=== PATIENT | female | born 1985 | race African-American/Black ===

== ENCOUNTER 2018-06-21 23:15 | Emergency (ER) | payer OTHER ==
[2018-06-22] MEDS ORDERED: HYDROXYZINE HCL 10 MG TABLET PO ONE (00:14)
[2018-06-22 00:53] LABS: ABSOLUTE EOSINOPHILS # (AUTO) 0.2 10^3/uL (0.0-0.6); ABSOLUTE LYMPHOCYTES (AUTO) 2.5 10^3/uL (0.5-4.7); ABSOLUTE MONOCYTES (AUTO) 0.8 10^3/uL (0.1-1.4); ABSOLUTE NEUT (AUTO) 7.8 10^3/uL (1.7-8.2); BASOPHILS % (AUTO) 0.2 % (0-2); EOSINOPHILS % (AUTO) 1.5 % (0-6); HEMATOCRIT 36.1 % (36.0-47.0); LYMPHOCYTES % (AUTO) 22.5 % (13-45); MEAN CORPUSCULAR HEMOGLOBIN 27.6 pg (27.0-33.4); MEAN CORPUSCULAR HGB CONC 33.2 g/dL (32.0-36.0); MEAN CORPUSCULAR VOLUME 83 fl (80-97); MONOCYTES % (AUTO) 6.8 % (3-13); PLATELET COUNT 272 10^3/uL (150-450); RED BLOOD COUNT 4.33 10^6/uL (3.72-5.28); RED CELL DISTRIBUTION WIDTH 14.3 % (11.5-14.0); TOTAL CELLS COUNTED % (AUTO) 100 %; WHITE BLOOD COUNT 11.2 10^3/uL (4.0-10.5)
[2018-06-22 01:06] LABS: ALANINE AMINOTRANSFERASE 11 U/L (9-52); ALBUMIN 4.1 g/dL (3.5-5.0); ALKALINE PHOSPHATASE 55 U/L (38-126); ANION GAP 11 (5-19); ASPARTATE AMINO TRANSFERASE 16 U/L (14-36); BILIRUBIN,DIRECT 0.2 mg/dL (0.0-0.4); BILIRUBIN,TOTAL 0.2 mg/dL (0.2-1.3); BLOOD UREA NITROGEN 10 mg/dL (7-20); CALCIUM 9.7 mg/dL (8.4-10.2); CARBON DIOXIDE 27 mmol/L (22-30); CHLORIDE 103 mmol/L (98-107); GLUCOSE 114 mg/dL (75-110); POTASSIUM 4.1 mmol/L (3.6-5.0); TOTAL PROTEIN 7.3 g/dL (6.3-8.2)
[2018-06-22] MEDS ORDERED: ALPRAZOLAM 0.5 MG TABLET PO ONE (01:35)
--- NOTE | 2018-06-22 01:48 | ER Document Report ---
ED General - General Chief Complaint: Anxiety Stated Complaint: SHORTNESS OF BREATH Time Seen by Provider: 06/21/18 23:43 Mode of Arrival: Ambulatory Information source: Patient TRAVEL OUTSIDE OF THE [place] IN LAST 30 DAYS: No - HPI Patient complains to provider of: Anxiety Onset: Other - 32-year-old woman without medical problems the presents for evaluation of anxiety and a sensation of some shortness of breath which developed today while she was at home she noted that she felt like something was unwell brought all her family together because she wanted them to be together had smokes marijuana and then began to feel more short of breath. Because she was concerned she thereafter followed her mother to her house and asked her to come the emergency room. She is never had anything like this in the past nothing is made it better or worse. She did try to smoke marijuana to help with it. - Related Data Allergies/Adverse Reactions: No Known Allergies Allergy (Verified 06/22/18 00:43) Past Medical History - General Information source: Patient - Social History Smoking Status: Unknown if Ever Smoked Chew tobacco use (# tins/day): No Frequency of alcohol use: Rare Drug Abuse: Marijuana Family History: None Patient has suicidal ideation: No Patient has homicidal ideation: No Renal/ Medical History: Denies: Hx Peritoneal Dialysis Past Surgical History: Reports: Hx Orthopedic Surgery - FOOT Review of Systems - Review of Systems -: Yes All other systems reviewed and negative Physical Exam - Vital signs Vitals: Temp Pulse Resp BP Pulse Ox 98.3 F 108 H 18 130/91 H 100 06/21/18 23:23 06/21/18 23:23 06/21/18 23:23 06/21/18 23:23 06/21/18 23:23 - General General appearance: Appears well, Alert - HEENT Head: Normocephalic, Atraumatic Eyes: Normal Pupils: PERRL - Respiratory Respiratory status: No respiratory distress Chest status: Nontender Breath sounds: Normal Chest palpation: Normal - Cardiovascular Rhythm: Regular Heart sounds: Normal auscultation Murmur: No - Abdominal Inspection: Normal Distension: No distension Bowel sounds: Normal Tenderness: Nontender Organomegaly: No organomegaly - Back Back: Normal, Nontender - Extremities General upper extremity: Normal inspection, Nontender, Normal color, Normal ROM , Normal temperature General lower extremity: Normal inspection, Nontender, Normal color, Normal ROM , Normal temperature, Normal weight bearing. No: Gail's sign - Neurological Neuro grossly intact: Yes Cognition: Normal Orientation: AAOx4 Harbert Coma Scale Eye Opening: Spontaneous Linda Coma Scale Verbal: Oriented Linda Coma Scale Motor: Obeys Commands Linda Coma Scale Total: 15 Speech: Normal Motor strength normal: LUE, RUE, LLE, RLE Sensory: Normal - Psychological Associated symptoms: Normal affect, Normal mood Course - Re-evaluation Re-evalutation: 32-year-old female presents for anxiety. She does not have any known medical problems. She does have modest tachycardia though she has been smoking marijuana and I do think there is an element of paranoia here. We will plan for her to undergo d-dimer, CBC CMP troponin reassessment. Patient given hydroxyzine to try and treat her symptoms of anxiety. She is clinically intoxicated with marijuana at this time. D-dimer is negative, CBC CMP are reassuring troponin is negative. Patient with no active chest pain at this time does appear to still be under the influence of marijuana at this time. We will plan for administration of benzodiazepine. Did speak to the patient and her mother about further investigation management including potential mental health evaluation in the morning which they declined at this time. She denies any suicidality homicidality or hallucinations. We that she is likely safe for outpatient management. We will plan for discharge and return precautions. - Vital Signs Vital signs: Temp Pulse Resp BP Pulse Ox 98.3 F 108 H 18 130/91 H 100 06/21/18 23:23 06/21/18 23:23 06/21/18 23:23 06/21/18 23:23 06/21/18 23:23 - Laboratory Result Diagrams: 06/22/18 00:35 06/22/18 00:35 Laboratory results interpreted by me: 06/22/18 06/22/18 00:35 00:35 WBC 11.2 H RDW 14.3 H Glucose 114 H Discharge - Discharge Clinical Impression: Shortness of breath, Marijuana smoker, episodic, Anxiety Condition: Good Disposition: HOME, SELF-CARE Instructions: Anxiety (OM), Benzodiazepines (OM) Additional Instructions: You were seen today in the emergency department for your sensation that something was wrong. He had an evaluation including physical exam as well as blood tests. Marker for blood clots was normal, your blood work was otherwise reassuring. Use the medication prescribed you only as needed make sure that if you are using it that she did not have to do anything thereafter. Return for worsening paranoia, confusion or concern the something is going on. If you have worsening chest pain shortness of breath or lose consciousness you should also return to the emergency room as it may be a more serious condition. Prescriptions: Lorazepam [Ativan 0.5 mg Tablet] 0.5 mg PO Q4 PRN #12 tab PRN Reason: Referrals: FITO PHILIP MD [Primary Care Provider] - Follow up as needed
[2018-06-22 02:12] VITALS: BP 126/67
== END 2018-06-22 02:13 | disposition home or self-care (01) ==
LOC: ER 23:15
DX: F41.9 Anxiety disorder, unspecified (principal); R06.02 Shortness of breath; F12.90 Cannabis use, unspecified, uncomplicated; R00.0 Tachycardia, unspecified
CPT/HCPCS: 36415; 80053; 84484; 84703; 85025; 85379; 99283

== ENCOUNTER 2018-07-23 17:10 | Emergency (ER) | payer OTHER ==
[2018-07-23] MEDS ORDERED: HYDROXYZINE PAMOATE 25 MG CAPSULE PO ONE (17:55)
--- NOTE | 2018-07-23 18:00 | ER Document Report ---
ED Medical Screen (RME) - General Chief Complaint: Other Stated Complaint: SHORTNESS OF BREATH Time Seen by Provider: 07/23/18 17:51 TRAVEL OUTSIDE OF THE [place] IN LAST 30 DAYS: No - HPI Notes: 07/23/18 17:59 Patient is a 32-year-old female that presents to the emergency department for chief complaint of anxiety and suicidal ideation. Patient states for the last few weeks she has felt increasingly suicidal. She denies plan. She denies history of suicide attempt in the past.. ROS: GENERAL: Denies fever of chills CV: Denies chest pain PHYSICAL EXAMINATION: GENERAL: Well-appearing, well-nourished and in no acute distress. HEAD: Atraumatic, normocephalic. EYES: Pupils equal round extraocular movements intact, conjunctiva are normal. ENT: Nares patent NECK: Normal range of motion LUNGS: No respiratory distress Musculoskeletal: Normal range of motion NEUROLOGICAL: Normal speech, normal gait. PSYCH: Tremulous, anxious, tearful MDM: Patient seen and examined for rapid initial assessment. Vital signs reviewed. A comprehensive ED assessment and evaluation of the patient, analysis of test results and completion of the medical decision making process will be conducted by additional ED providers. - Related Data Allergies/Adverse Reactions: No Known Allergies Allergy (Verified 06/22/18 00:43) Past Medical History Renal/ Medical History: Denies: Hx Peritoneal Dialysis Past Surgical History: Reports: Hx Orthopedic Surgery - FOOT Physical Exam - Vital signs Vitals: Temp Pulse Resp BP Pulse Ox 98.6 F 75 22 H 136/106 H 100 07/23/18 17:19 07/23/18 17:19 07/23/18 17:19 07/23/18 17:19 07/23/18 17:19 Course - Vital Signs Vital signs: Temp Pulse Resp BP Pulse Ox 98.6 F 75 22 H 136/106 H 100 07/23/18 17:19 07/23/18 17:19 07/23/18 17:19 07/23/18 17:19 07/23/18 17:19 Doctor's Discharge - Discharge Referrals: FITO PHILIP MD [Primary Care Provider] - Follow up as needed
[2018-07-23 18:23] LABS: ABSOLUTE EOSINOPHILS # (AUTO) 0.1 10^3/uL (0.0-0.6); ABSOLUTE LYMPHOCYTES (AUTO) 2.4 10^3/uL (0.5-4.7); ABSOLUTE MONOCYTES (AUTO) 0.5 10^3/uL (0.1-1.4); ABSOLUTE NEUT (AUTO) 5.5 10^3/uL (1.7-8.2); BASOPHILS % (AUTO) 0.5 % (0-2); HEMATOCRIT 37.8 % (36.0-47.0); HEMOGLOBIN 12.7 g/dL (12.0-15.5); LYMPHOCYTES % (AUTO) 28.3 % (13-45); MEAN CORPUSCULAR HGB CONC 33.7 g/dL (32.0-36.0); MEAN CORPUSCULAR VOLUME 83 fl (80-97); PLATELET COUNT 325 10^3/uL (150-450); RED BLOOD COUNT 4.55 10^6/uL (3.72-5.28); RED CELL DISTRIBUTION WIDTH 14.4 % (11.5-14.0); SEGMENTED NEUTROPHILS % (AUTO) 64.2 % (42-78); TOTAL CELLS COUNTED % (AUTO) 100 %; WHITE BLOOD COUNT 8.6 10^3/uL (4.0-10.5)
[2018-07-23 18:25] LABS: APPEARANCE,URINE CLEAR; BILIRUBIN,URINE NEGATIVE (NEGATIVE); COLOR,URINE YELLOW; GLUCOSE, URINE NEGATIVE (NEGATIVE); KETONES,URINE NEGATIVE (NEGATIVE); LEUKOCYTE ESTERASE,URINE NEGATIVE (NEGATIVE); NITRITE,URINE NEGATIVE (NEGATIVE); PROTEIN,URINE NEGATIVE (NEGATIVE); URINE SPECIFIC GRAVITY 1.024; UROBILINOGEN,URINE NEGATIVE mg/dL (<2.0)
[2018-07-23] MEDS ORDERED: DIAZEPAM 5 MG TABLET PO ONE (18:26)
[2018-07-23 18:36] LABS: ACETAMINOPHEN < 10 ug/mL (10-30); ALANINE AMINOTRANSFERASE 12 U/L (9-52); ALBUMIN 4.2 g/dL (3.5-5.0); ALCOHOL < 10 mg/dL (NONE DETECTED); ALKALINE PHOSPHATASE 58 U/L (38-126); ANION GAP 8 (5-19); ASPARTATE AMINO TRANSFERASE 16 U/L (14-36); BILIRUBIN,DIRECT 0.3 mg/dL (0.0-0.4); BILIRUBIN,TOTAL 0.4 mg/dL (0.2-1.3); BLOOD UREA NITROGEN 12 mg/dL (7-20); CALCIUM 9.9 mg/dL (8.4-10.2); CARBON DIOXIDE 25 mmol/L (22-30); CHLORIDE 105 mmol/L (98-107); GLUCOSE 100 mg/dL (75-110); POTASSIUM 4.5 mmol/L (3.6-5.0); SALICYLATE < 1.0 mg/dL (2.0-20.0); SODIUM 137.5 mmol/L (137-145); TOTAL PROTEIN 7.5 g/dL (6.3-8.2)
[2018-07-23 19:27] LABS: URINE AMPHETAMINES SCREEN NEGATIVE; URINE BARBITURATES SCREEN NEGATIVE; URINE BENZODIAZEPINES SCREEN NEGATIVE; URINE COCAINE SCREEN NEGATIVE; URINE MARIJUANA (THC) SCREEN NEGATIVE; URINE METHADONE SCREEN NEGATIVE; URINE PHENCYCLIDINE SCREEN NEGATIVE
--- NOTE | 2018-07-23 20:07 | ER Document Report ---
ED General - General Chief Complaint: Other Stated Complaint: SHORTNESS OF BREATH Time Seen by Provider: 07/23/18 17:51 Notes: Patient is a 32-year-old female without chronic medical problems beyond chronic anxiety who presents with feelings of increasing anxiety, passive suicidal ideation that have been going on for several years but has become much worse over the last 1 month. The patient states that she saw a psychiatrist, had been started on Xanax states that she did not feel that this helped and was worried about the addiction profile so discontinued the medication. Patient does note that she has had several months of passive suicidal ideation, not worse today. Denies any specific plans, means or intentions to complete suicide. She states that she has 3 children at home who depend on her and that she would never make any attempt to harm herself. Her main concern and the reason she came to the emergency department tonight is that she is seeking help for her debilitating anxiety as her boss told her that she needed to be evaluated today as her anxiety has become so crippling that she is having difficulty functioning at work. She denies any prior psychiatric hospitalizations. Denies any previous suicide attempts. Denies any acute medical complaints. Denies drug or alcohol use. TRAVEL OUTSIDE OF THE [place] IN LAST 30 DAYS: No - Related Data Allergies/Adverse Reactions: No Known Allergies Allergy (Verified 06/22/18 00:43) Past Medical History - General Information source: Patient - Social History Smoking Status: Former Smoker Frequency of alcohol use: None Drug Abuse: None Lives with: Family Family History: Reviewed & Not Pertinent Patient has suicidal ideation: No Patient has homicidal ideation: No Renal/ Medical History: Denies: Hx Peritoneal Dialysis Past Surgical History: Reports: Hx Orthopedic Surgery - FOOT Review of Systems - Review of Systems Notes: Constitutional: Negative for fever. HENT: Negative for sore throat. Eyes: Negative for visual changes. Cardiovascular: Negative for chest pain. Respiratory: Negative for shortness of breath. Gastrointestinal: Negative for abdominal pain, vomiting or diarrhea. Genitourinary: Negative for dysuria. Musculoskeletal: Negative for back pain. Skin: Negative for rash. Neurological: Negative for headaches, weakness or numbness. 10 point ROS negative except as marked above and in HPI. Physical Exam - Vital signs Vitals: Temp Pulse Resp BP Pulse Ox 98.6 F 75 22 H 136/106 H 100 07/23/18 17:19 07/23/18 17:19 07/23/18 17:19 07/23/18 17:19 07/23/18 17:19 Interpretation: Normal Notes: PHYSICAL EXAMINATION: GENERAL: Well-appearing, well-nourished and in no acute distress. HEAD: Atraumatic, normocephalic. EYES: Pupils equal round and reactive to light, extraocular movements intact, sclera anicteric, conjunctiva are normal. ENT: nares patent, oropharynx clear without exudates. Moist mucous membranes. NECK: Normal range of motion, supple without lymphadenopathy LUNGS: Breath sounds clear to auscultation bilaterally and equal. No wheezes rales or rhonchi. HEART: Regular rate and rhythm without murmurs ABDOMEN: Soft, nontender, normoactive bowel sounds. No guarding, no rebound. No masses appreciated. EXTREMITIES: Normal range of motion, no pitting or edema. No cyanosis. NEUROLOGICAL: No focal neurological deficits. Moves all extremities s pontaneously and on command. PSYCH: Moderately anxious SKIN: Warm, Dry, normal turgor, no rashes or lesions noted. Course - Re-evaluation Re-evalutation: 07/23/18 20:05 Patient presents with uncontrolled, daily chronic anxiety has been progressively worsening over the last several years particularly in the last 1 month. The pat papo does report some passive suicidal ideation but is very clear to state "I have no intention of actually hurting myself, I have no plan to do so". She states that sometimes she has more of a feeling of not minding if life would be over or if she could just go to sleep. She is clear to state however that she has no intention of doing anything to harm herself, notes that she has 3 children at home depending on her and that she would not be willing to leave them. She does not meet involuntary commitment criteria. She is here more due to concerns of uncontrolled chronic daily anxiety. I have started her on fluoxetine, have provided outpatient resources. I also informed her that she can return in the morning to discuss with behavioral health she does not wish to remain in the emergency department tonight as she does have her 3-year-old son with her today. She denies any acute medical concerns at this time point. Medical screening exam and labs are unremarkable. At this time will discharge with return precautions and follow-up recommendations. Verbal discharge instructions given a the bedside and opportunity for questions given. Medication warnings reviewed. Patient is in agreement with this plan and has verbalized understanding of return precautions and the need for psychiatric follow-up in the next 24-72 hours. - Vital Signs Vital signs: Temp Pulse Resp BP Pulse Ox 98.9 F 94 20 122/75 100 07/23/18 20:20 07/23/18 20:20 07/23/18 20:20 07/23/18 20:20 07/23/18 17:19 - Laboratory Result Diagrams: 07/23/18 18:09 07/23/18 18:09 Laboratory results interpreted by me: 07/23/18 07/23/18 18:09 18:09 RDW 14.4 H Salicylates < 1.0 L Acetaminophen < 10 L - EKG Interpretation by Me Additional EKG results interpreted by me: 07/24/18 04:36 Sinus rhythm, rate 71. No ST elevations or depressions. QTC is 409. Discharge - Discharge Clinical Impression: Anxiety, generalized, Passive suicidal ideations Depression Qualifiers: Depression Type: unspecified Qualified Code(s): F32.9 - Major depressive disorder, single episode, unspecified Condition: Good Disposition: HOME, SELF-CARE Additional Instructions: Please return if you have thoughts of wanting to hurt yourself, hurt others, or have any other symptoms that are concerning to you. Prescriptions: Fluoxetine HCl 20 mg PO DAILY #30 tablet Referrals: FITO PHILIP MD [Primary Care Provider] - Follow up as needed
[2018-07-23 20:48] VITALS: BP 122/75
--- NOTE | 2018-07-23 23:36 | EKG REPORT ---
SEVERITY:- NORMAL ECG - SINUS RHYTHM : Confirmed by: Deepthi Quiroz MD 23-Jul-2018 23:35:29
== END 2018-07-23 20:20 | disposition home or self-care (01) ==
LOC: ER 17:10
DX: F41.1 Generalized anxiety disorder (principal); T42.4X6A Underdosing of benzodiazepines, initial encounter; Z91.128 Patient's intentional underdosing of medication regimen for other reason; Z91.14 Patient's other noncompliance with medication regimen; F32.9 Major depressive disorder, single episode, unspecified; R45.851 Suicidal ideations; Z87.891 Personal history of nicotine dependence
CPT/HCPCS: 36415; 80053; 80307; 81001; 85025; 93005; 93010; 99285

== ENCOUNTER 2019-08-15 12:15 | Emergency (ER) | payer OTHER ==
--- NOTE | 2019-08-15 12:32 | ER Document Report ---
ED Medical Screen (RME) - General Chief Complaint: Flu Symptoms Stated Complaint: COUGH,CHEST PAINS Time Seen by Provider: 08/15/19 12:27 Primary Care Provider: FITO PHILIP MD [Primary Care Provider] - Follow up as needed Mode of Arrival: Ambulatory Information source: Patient Notes: 33-year-old female patient recently diagnosed with influenza presenting to the emergency department with chest pain. Patient reports that she was seen at an urgent care 3 days ago when she was diagnosed with the flu and they told her if she developed chest pain to come to the emergency department. Patient reports she has had intermittent midsternal chest pain over the last 2 days however this morning it got worse so she called the urgent care told her to come into the [facility] department to have her heart checked out. Patient is alert, oriented, calm and cooperative. Heart sounds S1-S2 present with no ectopy noted. Lung sounds clear and equal bilaterally. I have greeted and performed a rapid initial assessment of this patient. A comprehensive ED assessment and evaluation of the patient, analysis of test results and completion of the medical decision making process will be conducted by additional ED providers. I have specifically instructed the patient or family members with the patient to immediately return to any nursing staff should anything change in the patient's condition or with their chief complaint. TRAVEL OUTSIDE OF THE [place] IN LAST 30 DAYS: No - Related Data Allergies/Adverse Reactions: No Known Allergies Allergy (Verified 06/22/18 00:43) Past Medical History - Social History Frequency of alcohol use: None Drug Abuse: None Renal/ Medical History: Denies: Hx Peritoneal Dialysis Past Surgical History: Reports: Hx Orthopedic Surgery - FOOT Physical Exam - Vital signs Vitals: Temp Pulse Resp BP Pulse Ox 99.1 F 101 H 16 110/69 95 08/15/19 12:23 08/15/19 12:23 08/15/19 12:23 08/15/19 12:23 08/15/19 12:23 Course - Vital Signs Vital signs: Temp Pulse Resp BP Pulse Ox 99.1 F 101 H 16 110/69 95 08/15/19 12:23 08/15/19 12:23 08/15/19 12:23 08/15/19 12:23 08/15/19 12:23 Doctor's Discharge - Discharge Referrals: FITO PHILIP MD [Primary Care Provider] - Follow up as needed
--- NOTE | 2019-08-15 12:59 | RADIOLOGY REPORT (SQ) ---
EXAM DESCRIPTION: CHEST 2 VIEWS COMPLETED DATE/TIME: 08/15/2019 12:50 pm REASON FOR STUDY: chest pain COMPARISON: None. EXAM PARAMETERS: NUMBER OF VIEWS: two views TECHNIQUE: Digital Frontal and Lateral radiographic views of the chest acquired. RADIATION DOSE: NA LIMITATIONS: none FINDINGS: LUNGS AND PLEURA: No opacities, masses or pneumothorax. No pleural effusion. MEDIASTINUM AND HILAR STRUCTURES: No masses or contour abnormalities. HEART AND VASCULAR STRUCTURES: Heart normal size. No evidence for failure. BONES: No acute findings. HARDWARE: None in the chest. OTHER: No other significant finding. IMPRESSION: NO ACUTE RADIOGRAPHIC FINDING IN THE CHEST. TECHNICAL DOCUMENTATION: JOB ID: [id number] [employer]- All Rights Reserved Reading location - IP/workstation name: [email or web address]
[2019-08-15 13:20] LABS: ABSOLUTE LYMPHOCYTES (AUTO) 1.6 10^3/uL (0.5-4.7); ABSOLUTE MONOCYTES (AUTO) 0.6 10^3/uL (0.1-1.4); BASOPHILS % (AUTO) 0.5 % (0-2); EOSINOPHILS % (AUTO) 0.6 % (0-6); HEMATOCRIT 41.5 % (36.0-47.0); HEMOGLOBIN 13.7 g/dL (12.0-15.5); LYMPHOCYTES % (AUTO) 36.5 % (13-45); MEAN CORPUSCULAR HEMOGLOBIN 26.5 pg (27.0-33.4); MEAN CORPUSCULAR VOLUME 80 fl (80-97); MONOCYTES % (AUTO) 14.4 % (3-13); PLATELET COUNT 259 10^3/uL (150-450); RED BLOOD COUNT 5.17 10^6/uL (3.72-5.28); RED CELL DISTRIBUTION WIDTH 15.2 % (11.5-14.0); TOTAL CELLS COUNTED % (AUTO) 100 %; WHITE BLOOD COUNT 4.3 10^3/uL (4.0-10.5)
[2019-08-15 13:48] LABS: ALBUMIN 4.4 g/dL (3.5-5.0); ALKALINE PHOSPHATASE 58 U/L (38-126); ANION GAP 11 (5-19); ASPARTATE AMINO TRANSFERASE 26 U/L (14-36); BILIRUBIN,DIRECT 0.3 mg/dL (0.0-0.4); BILIRUBIN,TOTAL 0.4 mg/dL (0.2-1.3); BLOOD UREA NITROGEN 9 mg/dL (7-20); CALCIUM 9.5 mg/dL (8.4-10.2); CARBON DIOXIDE 27 mmol/L (22-30); CHLORIDE 100 mmol/L (98-107); GLUCOSE 105 mg/dL (75-110); TOTAL PROTEIN 7.9 g/dL (6.3-8.2)
--- NOTE | 2019-08-15 14:42 | ER Document Report ---
ED General - General Chief Complaint: Chest Pain Stated Complaint: COUGH,CHEST PAINS Time Seen by Provider: 08/15/19 12:27 Primary Care Provider: FITO PHILIP MD [ACTIVE STAFF] - Follow up as needed Mode of Arrival: Ambulatory TRAVEL OUTSIDE OF THE [place] IN LAST 30 DAYS: No - HPI Notes: 33-year-old female presents emergency room that was recently diagnosed with influenza x2 days ago at [facility]. She is taking Tamiflu. Reports that she is noticed chest pain that has been intermittent over the last 2 days. Patient states that she has had intermittent coughs. Denies a history of smoking, asthma, denies any cardiac history with her parents. Does not take baby aspirin, denies any previous cardiac history personally. Patient did not receive the flu without strep this year. Denies fevers, chills,palpitations, shortness of breath, dyspnea, nausea, vomiting, diarrhea, abdominal pain, hematuria,blurred vision, double vision, loss of vision, speech changes, LH, dizziness, syncope, headaches, wheezing, ST, URI, weakness, bowel or bladder dysfunction, saddle anesthesia, numbness or tingling in bilateral upper or lower extremities equally, muscle paralysis, weakness in bilateral upper or lower extremities equally or rash. - Related Data Allergies/Adverse Reactions: No Known Allergies Allergy (Verified 06/22/18 00:43) Past Medical History - General Information source: Patient - Social History Smoking Status: Unknown if Ever Smoked Frequency of alcohol use: None Drug Abuse: None Family History: Reviewed & Not Pertinent Patient has suicidal ideation: No Patient has homicidal ideation: No Renal/ Medical History: Denies: Hx Peritoneal Dialysis Past Surgical History: Reports: Hx Orthopedic Surgery - FOOT Review of Systems - Review of Systems Constitutional: No symptoms reported EENT: No symptoms reported Cardiovascular: See HPI Respiratory: See HPI Gastrointestinal: No symptoms reported Genitourinary: No symptoms reported Female Genitourinary: No symptoms reported Musculoskeletal: No symptoms reported Skin: No symptoms reported Hematologic/Lymphatic: No symptoms reported Neurological/Psychological: No symptoms reported Physical Exam - Vital signs Vitals: Temp Pulse Resp BP Pulse Ox 99.1 F 101 H 16 110/69 95 08/15/19 12:23 08/15/19 12:23 08/15/19 12:23 08/15/19 12:23 08/15/19 12:23 - Notes Notes: PHYSICAL EXAMINATION:reviewed vital signs by RN GENERAL: Well-appearing, well-nourished and in no acute distress. HEAD: Atraumatic, normocephalic. EYES: Pupils equal round and reactive to light, extraocular movements intact, c onjunctiva are normal. ENT: TM intact with bilateral serous effusion, no erythema. Nares boggy bila terally, oropharynx with erythema without exudates. Moist mucous membranes. NECK: Normal range of motion, supple without lymphadenopathy LUNGS: Breath sounds clear to auscultation bilaterally and equal. No wheezes rales or rhonchi. Chest pain with palpation onto the anterior chest that brought patient to the emergency room HEART: Regular rate and rhythm without murmurs ABDOMEN: Soft, nontender, nondistended abdomen. No guarding, no rebound. No masses appreciated. Female : deferred Musculoskeletal: Normal range of motion, no pitting or edema. No cyanosis. NEUROLOGICAL: Cranial nerves grossly intact. Normal speech, normal gait. Normal sensory, motor exams PSYCH: Normal mood, normal affect. SKIN: Warm, Dry, normal turgor, no rashes or lesions noted. Able to reproduce Course - Re-evaluation Re-evalutation: 08/15/19 15:20 Afebrile vital stable no distress. Nurse's notes reviewed. BC negative for leukocytosis or anemia, CMP negative for hepatic or renal dysfunction. Troponin is negative. Chest x-ray negative for pneumonia pneumothorax or other pulmonary issues. Clinical examination does show influenza without complications. Advised to continue Tamiflu, will add prednisone rescue inhaler and Tessalon Perles to help with influenza symptoms. Advised to follow-up with primary care provider in the next 24 to 48 hours. Patient's heart score is 0 and the fact that her history is not suspicious of an [place], her EKG is normal sinus rhythm without any ST segment changes or STEMI, she is less than 45 years of age and does not have any known risk factors such as hypertension, diabetes, obesity, smoking, family history with CVD, [place] or CABG, CVA or TIA etc., initial troponin was negative. after performing a Medical Screening Examination, I estimate there is LOW risk for RUPTURED ESOPHAGUS, PNEUMOTHORAX, PULMONARY EMBOLISM, ACUTE CORONARY SYNDROME, OR THORACIC AORTIC DISSECTION, thus I consider the discharge disposition reasonable. I have reevaluated this patient multiple times and no significant life threatening changes are noted. The patient and I have discussed the diagnosis and risks, and we agree with discharging home with close follow-up. We also discussed returning to the Emergency Department immediately if new or worsening symptoms occur. We have discussed the symptoms which are most concerning (e.g., bloody sputum, worsening pain or shortness of breath) that necessitate immediate return. - Vital Signs Vital signs: Temp Pulse Resp BP Pulse Ox 99.1 F 101 H 16 110/69 95 08/15/19 12:23 08/15/19 12:23 08/15/19 12:23 08/15/19 12:23 08/15/19 12:23 - Laboratory Result Diagrams: 08/15/19 13:10 08/15/19 13:10 Laboratory results interpreted by me: 08/15/19 13:10 MCH 26.5 L RDW 15.2 H [place] % (Auto) 14.4 H Discharge - Discharge Clinical Impression: Influenza, Costochondral chest pain, Cough Condition: Stable Disposition: HOME, SELF-CARE Instructions: Influenza ([facility]) [id number], Acetaminophen, Chest Wall Pain ([facility]) Additional Instructions: Your blood work was normal. Your chest x-ray was normal. your cardiac enzyme is normal as well as your EKG. I was able to reproduce chest pain that brought you in which be called costochondritis. This means that the muscles in between your ribs and on your chest are sore, which is eliciting your chest pain. Use rescue inhaler, Tessalon Perles and prednisone as directed. Please follow- up with your primary care provider within the next 24 to 48 hours. Continue taking your Tamiflu as directed. Return immediately for any new or worsening symptoms. Follow up with primary care provider, call tomorrow to make followup appointment. Prescriptions: Albuterol Sulfate [Proair Respiclick] 90 mcg IH Q4HP PRN #1 [id number] PRN Reason: Benzonatate [Tessalon Perles 100 mg Capsule] 100 mg PO Q8HP PRN #20 capsule PRN Reason: Prednisone [Deltasone 20 mg Tablet] 3 tab PO DAILY 5 Days #15 tablet Forms: Return to Work Referrals: FITO PHILIP MD [ACTIVE STAFF] - Follow up as needed
[2019-08-15 15:23] LABS: APPEARANCE,URINE SLIGHTLY-CLOUDY; BILIRUBIN,URINE NEGATIVE (NEGATIVE); COLOR,URINE YELLOW; GLUCOSE, URINE NEGATIVE (NEGATIVE); KETONES,URINE TRACE mg/dL (NEGATIVE); LEUKOCYTE ESTERASE,URINE NEGATIVE (NEGATIVE); NITRITE,URINE NEGATIVE (NEGATIVE); PROTEIN,URINE 100 mg/dL (NEGATIVE); URINE SPECIFIC GRAVITY 1.023; UROBILINOGEN,URINE NEGATIVE mg/dL (<2.0)
[2019-08-15 15:47] VITALS: BP 117/64
--- NOTE | 2019-08-15 18:24 | EKG REPORT ---
SEVERITY:- ABNORMAL ECG - SINUS RHYTHM ES, CONSIDER BIATRIAL ABNORMALITIES BORDERLINE T ABNORMALITIES, ANTERIOR LEADS : Confirmed by: Harlan Lobato MD 15-Aug-2019 18:24:00
== END 2019-08-15 16:02 | disposition home or self-care (01) ==
LOC: ER 12:15
DX: J11.1 Influenza due to unidentified influenza virus with other respiratory manifestations (principal); R07.1 Chest pain on breathing; R05 Cough
CPT/HCPCS: 36415; 71046; 80053; 81001; 84484; 85025; 93005; 93010; 99284